=== PATIENT | female | born 1990 ===

== ENCOUNTER 2025-06-14 18:31 | Emergency (ER) | payer OTHER ==
[~2025-06-14] VITALS: Ht 165.1 cm; Wt 77.1 kg
[~2025-06-14 18:31] MED LIST: PROTONIX20 MG; ZANTAC150 M2
[2025-06-14] MEDS ORDERED: ONDANSETRON HCL 2 MG/ML VIAL IV STA (19:31)
[2025-06-14] MEDS ORDERED: 0.9 % SODIUM CHLORIDE 1,000 ML IV STA (19:31)
[2025-06-14] MEDS ORDERED: ONDANSETRON HCL 2 MG/ML VIAL ONE (19:32)
[2025-06-14] MEDS ORDERED: FAMOTIDINE/PF 20 MG/2 ML VIAL ONE (19:52)
[2025-06-14] MEDS ORDERED: FAMOTIDINE/PF 20 MG in 0.9 % SODIUM CHLORIDE 8 ML IV PUSH STA (19:53)
[2025-06-14 19:57] LABS: BASO % 0.4 % (0.1-1.2); EOS # 0.16 (0.04-0.54); EOS % 1.5 % (0.7-7.0); LYMPH # 2.16 (1.18-3.74); LYMPH % 20.3 % (19.3-53.1); MEAN PLATELET VOLUME 11.70 fl (9.4-12.4); MONO # 0.84 (0.24-0.82); MONO % 7.9 % (4.7-12.5); NEUT # 7.41 (1.56-6.13); NEUT % 69.7 % (34.0-71.1); RED CELL DISTRIBUTION WIDTH 13.9 % (11.6-14.4)
[2025-06-14 20:41] LABS: BUN CREA RATIO 13.0 (7.0-25.0); CREATININE SERUM 0.61 mg/dL (0.55-1.02); GFR 110.98; GLUCOSE FASTING 90.0 mg/dL (65-100); OSMOLALITY SERUM 279.0 MOSM/KG (275-295)
[2025-06-14 20:45] LABS: HCG QUANTITATIVE 53903.0 mUI/mL (1-3)
[2025-06-14 21:12] LABS: URINE APPEARANCE Cloudy; URINE BILIRRUBIN Small (NEGATIVE); URINE BLOOD Negative; URINE COLOR Dark Yellow; URINE GLUCOSE Negative (NEGATIVE); URINE LEUKOCYTE Small; URINE NITRATE Negative; URINE PROTEIN Trace (NEGATIVE); URINE UROBILINOGEN 1.0 E.U./dl
[2025-06-14 21:13] LABS: URINE CAST 2.63 uL (0.0-1.40); URINE EPITHELIAL CELLS 103.8 uL (0.0-38.8); URINE RBC 11.7 uL (0.0-20.8); URINE WBC 94.1 uL (0.0-23.2)
[2025-06-14 21:18] LABS: URINE BACTERIA > 9821.5 uL (0.0-1933); URINE KETONE >=160 (NEGATIVE)
[2025-06-15] MEDS ORDERED: METOCLOPRAMIDE HCL 5 MG/ML VIAL IM STA (01:48)
[2025-06-15] MEDS ORDERED: METOCLOPRAMIDE HCL 5 MG/ML VIAL ONE (01:54)
== END 2025-06-15 03:28 | disposition home or self-care (01) ==
LOC: ER 18:31
PROVIDERS: Emergency Medicine
DX: O21.0 Mild hyperemesis gravidarum (principal); Z3A.01 Less than 8 weeks gestation of pregnancy; Z88.8 Allergy status to other drugs, medicaments and biological substances